=== PATIENT | female | born 1980 | race Caucasian/White ===

== ENCOUNTER 2017-10-23 07:49 | Observation (INO) | payer BC ==
[2017-10-21 15:09] LABS: BASOPHILS % 0.4 % (0.0-1.0); EOSINOPHILS # (AUTO) 0.1 (0.0-0.4); EOSINOPHILS % 0.9 % (0.0-6.0); HEMATOCRIT 40.7 % (34.2-44.1); HEMOGLOBIN 13.1 g/dL (12.0-16.0); LYMPHOCYTES # (AUTO) 1.1 (1.0-3.2); LYMPHOCYTES % 15.6 % (18.0-39.1); MEAN CORPUSCULAR HEMOGLOBIN 30.5 pg (28-32); MEAN CORPUSCULAR HGB CONC 32.2 g/dL (31-35); MEAN CORPUSCULAR VOLUME 94.7 fL (81-99); MONOCYTES # (AUTO) 0.4 (0.2-0.8); MONOCYTES % 5.6 % (4.4-11.3); NEUTROPHILS # (AUTO) 5.2 (2.1-6.9); NEUTROPHILS % 77.2 % (38.7-80.0); PLATELET COUNT 152 x10e3/uL (140-360); RED CELL DISTRIBUTION WIDTH 13.2 % (11.7-14.4)
[2017-10-21 15:21] LABS: INR 1.07; PARTIAL THROMBOPLASTIN TIME 28.9 seconds (23.8-35.5); PROTHROMBIN TIME 13.1 seconds (11.9-14.5)
[2017-10-21 15:25] LABS: ANION GAP 12.7 mmol/L (8-16); BLOOD UREA NITROGEN 12 mg/dL (7-26); BUN/CREATININE RATIO 16 (6-25); CALCIUM 8.7 mg/dL (8.4-10.2); CARBON DIOXIDE 27 mmol/L (22-29); CHLORIDE 108 mmol/L (98-107); CREATININE, SERUM 0.75 mg/dL (0.57-1.11); EST GLOMERULAR FILTRATION RATE > 60 ML/MIN (60-); GLUCOSE 83 mg/dL (74-118); POTASSIUM 3.7 mmol/L (3.5-5.1); SODIUM 144 mmol/L (136-145)
--- NOTE | 2017-10-21 15:36 | Diagnostic Imaging Report ---
EXAMINATION: CHEST 2 VIEWS INDICATION: C5-C6 disc herniation \S\PRE ADMIT COMPARISON: None FINDINGS: PA and lateral views TUBES and LINES: None. LUNGS: Lungs are well inflated. Lungs are clear. There is no evidence of pneumonia or pulmonary edema. PLEURA: No pleural effusion or pneumothorax. HEART AND MEDIASTINUM: The cardiomediastinal silhouette is unremarkable. BONES AND SOFT TISSUES: No acute osseous lesion. Soft tissues are unremarkable. UPPER ABDOMEN: No free air under the diaphragm. IMPRESSION: No acute thoracic abnormality. Signed by: Dr. Nazario Morton M.D. on 10/21/2017 3:32 PM
[~2017-10-23] VITALS: Ht 162.6 cm; Wt 70.8 kg
[~2017-10-23 07:49] MED LIST: ACETAMINOPHEN 1000 MG/100 ML 100 ML IV ONE; LEXAPRO10 MG PO; LIDOCAINE HCL (LTA) 4 ML SOLN ONE
[2017-10-23] MEDS ORDERED: GELATIN SPONGE SZ 100 ONE (07:55)
[2017-10-23] MEDS ORDERED: THROMBIN FOR SOLN 5,000 UNIT VIAL ONE (07:55)
[2017-10-23] MEDS ORDERED: BUPIVACAINE 0.5%/EPI 30 ML SDV INJ ONE (07:55)
[2017-10-23] MEDS ORDERED: BACITRACIN 50,000 UNIT VIAL ONE (07:56)
[2017-10-23] MEDS ORDERED: CEFAZOLIN SOD 1 GM VIAL ONE (08:44)
[2017-10-23] MEDS ORDERED: HORMONE PATCH TOP (08:59)
[2017-10-23] MEDS ORDERED: LACTATED RINGER'S 1,000 ML IV SCH (10:40)
[2017-10-23] MEDS ORDERED: MORPHINE SULFATE 5 MG/ML VIAL IM PRN (10:45)
[2017-10-23] MEDS ORDERED: PROMETHAZINE HCL (IM) 25 MG/ML VIAL IM PRN (10:45)
[2017-10-23] MEDS ORDERED: ACETAMINOPHEN 325 MG TAB PO PRN (10:45)
[2017-10-23] MEDS ORDERED: HYDROMORPHONE 2MG/ML 2 MG/ML ML IV PRN (10:45)
[2017-10-23] MEDS ORDERED: CEPACOL SORE THROAT LOZENGES PO PRN (10:45)
[2017-10-23] MEDS ORDERED: MAGNESIUM/ALUMINUM/SIMETHICONE 30 ML UDC PO PRN (10:45)
[2017-10-23] MEDS ORDERED: CARISOPRODOL 350 MG TAB PO PRN (10:45)
[2017-10-23] MEDS ORDERED: OXYCODONE/ACETAMINOPHEN 5-325 1 EACH TABLET PO PRN (10:45)
[2017-10-23] MEDS: ONDANSETRON HCL INJ 2 MG/ML VIAL IV PRN (11:21)
[2017-10-23] MEDS ORDERED: FENTANYL CITRATE/PF 100MCG/2 ML INJ ONE ×2 (11:32→19:18)
[2017-10-23 13:00] VITALS: BP 114/57
--- NOTE | 2017-10-23 13:33 | Operative Report ---
DATE OF PROCEDURE: October 23, 2017 PREOPERATIVE DIAGNOSIS: Right C5-6 disk herniation with radiculopathy, M50.122. POSTOPERATIVE DIAGNOSIS: Right C5-6 disk herniation with radiculopathy, M50.122. PROCEDURES 1. C5-6 anterior cervical diskectomy and allograft fusion, 80747. 2. Preparation of [employer] cortical cancellous allograft, 73987. 3. C5-C6 anterior cervical plating with Synthes ZPN plate, 26621. ANESTHESIA: General. INDICATIONS: Patient is a 36-year-old woman who presents with C5-C6 disk herniation and was taken to the operating room for anterior cervical decompression and fusion. PROCEDURE: After induction of general anesthesia, the patient was placed on the operating table in the supine position. The right side of the neck was prepped and draped in sterile fashion. The fluoroscopic C-arm was positioned in cross-table lateral orientation. A transverse incision was created on the right side of the neck superimposed on the C5-6 disk space as determined by fluoroscopy. The platysma was divided in line with the incision. A subplatysmal dissection was carried out. An avascular plane of dissection was developed medial to the sternocleidomastoid muscle and was followed medial to the carotid sheath to the anterior border of the cervical spine. The deep cervical fascia was opened. The esophagus was retracted to the left. The attachments of the longus colli muscle to the anterolateral aspects of the vertebral bodies of C5 and C6 were divided. The anterior longitudinal ligament was resected. Hillrose posts were inserted into C5 and C6. The Hillrose distractor was used to distract the disk space. The anterior annulus of the disk was incised with a #11 blade. The contents of the disk were thoroughly evacuated with angled curet and pituitary rongeur. The posterior osteophytes were meticulously drilled with a 2-mm cutting bur on a high-speed drill until they were completely removed. The posterior annulus of the disk, a large amount of herniated disk material and the posterior longitudinal ligament were resected layer by layer until the dura was fully exposed and decompressed. The medial aspect of the uncinate process was resected on the right side. An additional extruded disk was retrieved and removed from the right C6 neural foramen. After satisfactory decompression had been achieved, the endplates were prepared for fusion. The disk space was sized and found to be 8 mm in height. A piece of IDF cortical cancellous allograft measuring 8 mm in thickness was selected and loaded onto a Synthes ZPN plate. The construct was inserted into the C5-6 disk space under distraction and fluoroscopic guidance and tamped in place until the anterior margin of the plate was flush with the anterior margin of the vertebral bodies. The plate was then screwed to the endplates of C5 and C6 with 2 pairs of 14-mm screws. All screws were locked. An excellent construct was obtained. The wound was copiously irrigated with Bacitracin solution. Meticulous hemostasis was secured. Retractor was removed. The platysma was closed with 3-0 Vicryl suture. The skin was closed with 4-0 Monocryl sutures in subcuticular fashion. Steri-Strips and dressing were applied. The patient was awakened, extubated and taken to the postanesthesia care unit in stable condition. No intraoperative complications were encountered. Estimated blood loss was 10 mL. Job#: [id number]
[2017-10-23] MEDS ORDERED: CEFAZOLIN SOD 1 GM/D5W 50ML 50 ML IV SCH (14:00)
[2017-10-23 16:15] VITALS: BP 139/97
[2017-10-23] MEDS ORDERED: NEOSTIGMINE 5 MG/5ML SYR ONE (16:18)
[2017-10-23] MEDS ORDERED: SEVOFLURANE INHAL SOLN 250 ML PEN BTL ONE (16:18)
[2017-10-23] MEDS ORDERED: DEXAMETHASONE SOD PHOS INJ 4 MG/ML VIAL ONE (16:18)
[2017-10-23] MEDS ORDERED: ONDANSETRON HCL INJ 2 MG/ML VIAL ONE (16:18)
[2017-10-23] MEDS ORDERED: GLYCOPYRROLATE INJ 1MG/ 5 ML SYR ONE (16:18)
[2017-10-23] MEDS ORDERED: ROCURONIUM BROMIDE 10 MG/ML 5ML VIAL ONE (16:18)
[2017-10-23] MEDS ORDERED: PROPOFOL IV EMULSION 10 MG/ML 20 ML VIAL ONE (16:18)
[2017-10-23] MEDS ORDERED: LIDOCAINE HCL 2% LOCAL INJ 5 ML SDV VIAL INJ ONE (16:18)
[2017-10-23 16:38] VITALS: BP 115/67
[2017-10-23] MEDS: CEFAZOLIN SOD 1 GM VIAL IV SCH (17:00)
[2017-10-23] MEDS ORDERED: MIDAZOLAM HCL 2 MG/2 ML VIAL ONE (19:18)
[2017-10-23 20:00] VITALS: BP 128/67
[2017-10-23] MEDS ORDERED: ESCITALOPRAM OXALATE 10 MG TAB PO SCH (21:00)
[2017-10-23] MEDS ORDERED: ZOLPIDEM TARTRATE 5 MG TAB PO PRN (21:00)
[2017-10-24] VITALS: BP 116/64
[2017-10-24] MEDS: CEFAZOLIN SOD 1 GM VIAL IV SCH ×2 (01:30→09:00)
[2017-10-24 04:00] VITALS: BP 108/69
[2017-10-24] MEDS: ONDANSETRON HCL INJ 2 MG/ML VIAL IV PRN ×2 (04:45→11:00)
--- NOTE | 2017-10-24 06:28 | Diagnostic Imaging Report ---
C-SPINE 2 VIEWS AP LATERAL Comparison: None Clinical history: Neck surgery Findings: Straightening of the normal cervical lordosis. Status post C5-6 anterior fusion and discectomy. The interbody spacer is positioned to the posterior margin of the vertebral bodies. Mild soft tissue swelling and gas related to recent surgery. Impression: Postsurgical change status post C5-6 anterior fusion and discectomy. Signed by: Dr Kristen Glover MD on 10/24/2017 6:24 AM
[2017-10-24 07:45] VITALS: BP 117/63
[2017-10-24 08:00] VITALS: BP 117/63
[2017-10-24] MEDS ORDERED: ESCITALOPRAM OXALATE 10 MG TAB PO SCH (09:00)
[2017-10-24 12:09] VITALS: BP 116/66
== END 2017-10-24 13:01 | disposition home or self-care (01) ==
LOC: OR 07:49 → PACU V 10:41 → MED/SURG 14:22
PROVIDERS: ADMIT Neurological Surgery; ATTEND Neurological Surgery
DX: M50.122 Cervical disc disorder at C5-C6 level with radiculopathy (principal); Z01.810 Encounter for preprocedural cardiovascular examination; Z01.812 Encounter for preprocedural laboratory examination; Z01.811 Encounter for preprocedural respiratory examination
CPT/HCPCS: 20931; 22551; 22845; 36415; 71046; 72040; 77003; 80048; 85025; 85610; 85730; 86850; 86900; 88304; 93005; G0378 ×2; J0690 ×2; J1100; J1170; J2001; J2250; J2270; J2405 ×2; J3490; J7120 ×2

== ENCOUNTER 2024-05-14 07:38 | Outpatient (RCR) | payer OTHER ==
[~2024-05-14 07:38] MED LIST changes: -ACETAMINOPHEN 1000 MG/100 ML 100 ML IV ONE; +HORMONE PATCH TOP; -LIDOCAINE HCL (LTA) 4 ML SOLN ONE
== END 2024-05-17 ==
LOC: PT 07:38
PROVIDERS: ATTEND Neurological Surgery
DX: M47.892 Other spondylosis, cervical region (principal)

== ENCOUNTER 2024-05-25 14:54 | Outpatient (RCR) | payer OTHER | END 2024-06-16 | LOC: PT 14:54 | PROVIDERS: ATTEND Neurological Surgery | DX: M47.892 Other spondylosis, cervical region (principal) ==